=== PATIENT | male | born 1990 | race Caucasian/White ===

== ENCOUNTER → 2020-11-12 | Outpatient (CLI) | payer OTHER | LOC: LAB 14:33 | PROVIDERS: ATTEND Nurse Practitioner | DX: Z20.828 Contact with and (suspected) exposure to other viral communicable diseases (principal) ==

== ENCOUNTER → 2020-11-19 | Outpatient (CLI) | payer OTHER | LOC: LAB 14:03 | PROVIDERS: ATTEND Nurse Practitioner | DX: Z20.822 Contact with and (suspected) exposure to COVID-19 (principal) ==